=== PATIENT | male | born 1930 | race Caucasian/White ===

== ENCOUNTER 2018-06-21 15:48 | Inpatient (IN) | payer MEDICARE ==
[~2018-06-21] VITALS: Ht 172.7 cm; Wt 54.0 kg
[~2018-06-21 15:48] MED LIST: ACET-1600 PO; ALBU8.5H8 INH; AMLO2.5T5 PO; ASPI-650 PO; CARV3.1212 PO; CEFD300C37 PO; CYAN100T2 PO; DIVA125T2 PO; DOCU-131 PO; ERGO500017 PO; FINA5TAB4 PO; GLIP10TA13 PO; GLIP5TAB10 PO; LISI-167 PO; METF500T PO; METO25TA35 PO; METR500T PO; MIRT15TA94 PO; Magnesium Chloride PO; POLY17PO5 PO; TAMS-11 PO
--- NOTE | 2018-06-21 15:48 | NUR ---
BIB EMS from [facility] in [place], per staff there, pt has had diarrhea and decreased appetite x 2 days. Pt is AAO to self and place, does not know the year and does not know why he was transported to the ED. Pt denies any complaint for this RN. Afib noted on the monitor rate 110s-120s, unk history of afib.
--- NOTE | 2018-06-21 15:50 | NUR ---
Pt placed on all monitors, afib noted at a rate between 100s-120, unknown if pt has history of this. Pt denies any CP, SOB, palpitations, weakness, or any other complaint.
--- NOTE | 2018-06-21 16:15 | NUR ---
Dr. Tabares at bedside to evaluate pt.
--- NOTE | 2018-06-21 16:29 | NUR ---
Student at bedside for EKG.
[2018-06-21 16:44] LABS: BASOPHILS # (AUTO) 0.12 x10^3/uL (0-0.1); BASOPHILS % (AUTO) 1 % (0-1); EOSINOPHILS # (AUTO) 0.04 x10^3/uL (0-0.4); EOSINOPHILS % (AUTO) 0 % (1-7); LYMPHOCYTES # (AUTO) 0.45 x10^3/uL (1-3.4); LYMPHOCYTES % (AUTO) 4 % (22-44); MD NO; MEAN CORPUSCULAR HEMOGLOBIN 28.7 pg (27.5-34.5); MEAN CORPUSCULAR HGB CONC 31.5 g/dL (33.2-36.2); MEAN CORPUSCULAR VOLUME 91.1 fL (81-97); MEAN PLATELET VOLUME 7.5 fL (7.4-10.4); MONOCYTES # (AUTO) 0.89 x10^3/uL (0.2-0.8); MONOCYTES % (AUTO) 8 % (2-9); NEUTROPHILS # (AUTO) 9.68 x10^3/uL (1.8-6.8); NEUTROPHILS % (AUTO) 87 % (42-75); PLATELET COUNT 284 x10^3/uL (130-400); RED BLOOD COUNT 3.65 x10^6/uL (4.38-5.82); RED CELL DISTRIBUTION WIDTH 14.9 % (9.4-14.8)
[2018-06-21 16:53] LABS: ALANINE AMINOTRANSFERASE 25 U/L (12-78); ALBUMIN 2.4 g/dL (3.4-5.0); ANION GAP 6 mmol/L (5-15); CALCIUM 7.7 mg/dL (8.5-10.1); CHLORIDE 111 mmol/L (98-107); CREATININE 0.89 mg/dL (0.7-1.3)
[2018-06-21 16:58] LABS: ALKALINE PHOSPHATASE 90 U/L (45-117); BILIRUBIN,TOTAL 0.4 mg/dL (0.2-1.0); TOTAL PROTEIN 5.9 g/dL (6.4-8.2); TROPONIN I 0.022 ng/mL (0.000-0.045)
--- NOTE | 2018-06-21 17:30 | NUR ---
Pt very restless and agitated in bed, unable to communicate needs, just stating that he wants "to go to bed." Pt asked if he needs to use the bathroom, pt states that he does. Pt assisted to bedside commode. Pt very unsteady on feet, redness noted to sacrum. Pt wearing 2 pairs of disposable briefs from home living facility. Briefs removed and disposed of as they were soiled.
--- NOTE | 2018-06-21 17:44 | NUR ---
EDT at bedside to ensure pt safety on bedside commode and for return to [facility].
--- NOTE | 2018-06-21 17:50 | NUR ---
Stool sample walked to lab.
[2018-06-21] MEDS ORDERED: FUROSEMIDE 20 MG/2 ML ONE (18:11)
--- NOTE | 2018-06-21 18:23 | NUR ---
Pt medicated per MAR.
[2018-06-21] MEDS ORDERED: FUROSEMIDE 40 MG/4 ML IV ONE (18:30)
[2018-06-21 19:41] LABS: CLOSTRIDIUM DIFFICILE TOXIN POSITIVE (Negative)
[2018-06-21 19:46] LABS: CLOSTRIDIUM DIFFICILE ANTIGEN POSITIVE
[2018-06-21] MEDS ORDERED: VANCOMYCIN 50 MG/ML ORAL SUSP PO SCH (20:00)
--- NOTE | 2018-06-21 20:01 | NUR ---
Pt sleeping, on gurney, urinal at bedside. Pt remains on all monitors, afib with occasional PVCs noted.
[2018-06-21] MEDS ORDERED: NS + 20MEQ KCL 1,000 ML IV SCH (20:23)
--- NOTE | 2018-06-21 20:23 | NUR ---
Attempted to call floor RN for report.
[2018-06-21] MEDS ORDERED: IBUPROFEN 600 MG TABLET PO PRN (20:30)
[2018-06-21] MEDS ORDERED: hydrALAzine 20 MG/ML, 1ML IVPush PRN (20:30)
[2018-06-21] MEDS ORDERED: ENALAPRILAT 1.25 MG/ML, 2ML IVPush PRN (20:30)
[2018-06-21] MEDS ORDERED: ACETAMINOPHEN 325 MG TABLET PO PRN (20:30)
--- NOTE | 2018-06-21 20:44 | NUR ---
Telephone SBAR report given to RNLuci. Pt made aware of new room assignment.
[2018-06-21] MEDS: VANCOMYCIN 50 MG/ML ORAL SUSP PO SCH (21:00)
[2018-06-21] MEDS ORDERED: DEXTROSE 50%, 50ML SYRINGE IVPush PRN (21:00)
[2018-06-21] MEDS ORDERED: GLUCAGON 1 MG IM PRN (21:00)
[2018-06-21] MEDS: INSULIN LISPRO 100 UNITS/ML, PEN SQ-INSULIN SCH (21:00)
[2018-06-21] MEDS ORDERED: DEXTROSE 4 GM TAB.CHEW PO PRN (21:00)
[2018-06-21 21:30] VITALS: BP 108/56
[2018-06-21 21:50] LABS: HEMOGLOBIN A1C 8.4 % (4.2-6.3)
[2018-06-21] MEDS: HEPARIN 5,000 UNITS/ML, 1ML SQ SCH (22:32)
[2018-06-21] MEDS: SODIUM CHLORIDE FLUSH 10ML SYR IVF SCH (22:32)
[2018-06-21] MEDS: MIRTAZAPINE 15 MG TAB.RAPDIS PO SCH (22:33)
[2018-06-21] MEDS: DIVALPROEX 125 MG TABLET.DR PO SCH (22:33)
[2018-06-22] MEDS: VANCOMYCIN 50 MG/ML ORAL SUSP PO SCH ×4 (03:28→23:23)
[2018-06-22 03:32] VITALS: BP 128/76
[2018-06-22] MEDS: ASPIRIN 325 MG TABLET EC PO SCH (05:19)
[2018-06-22] MEDS: METOPROLOL TARTRATE 25 MG TABLET PO SCH ×2 (05:20→17:19)
[2018-06-22] MEDS: HEPARIN 5,000 UNITS/ML, 1ML SQ SCH ×3 (05:20→23:22)
[2018-06-22 05:25] LABS: BASOPHILS # (AUTO) 0.07 x10^3/uL (0-0.1); BASOPHILS % (AUTO) 1 % (0-1); EOSINOPHILS # (AUTO) 0.09 x10^3/uL (0-0.4); EOSINOPHILS % (AUTO) 1 % (1-7); LYMPHOCYTES # (AUTO) 0.67 x10^3/uL (1-3.4); LYMPHOCYTES % (AUTO) 8 % (22-44); MD NO; MEAN CORPUSCULAR HEMOGLOBIN 31.4 pg (27.5-34.5); MEAN CORPUSCULAR HGB CONC 34.2 g/dL (33.2-36.2); MEAN CORPUSCULAR VOLUME 91.7 fL (81-97); MEAN PLATELET VOLUME 7.4 fL (7.4-10.4); MONOCYTES # (AUTO) 0.45 x10^3/uL (0.2-0.8); MONOCYTES % (AUTO) 6 % (2-9); NEUTROPHILS # (AUTO) 6.72 x10^3/uL (1.8-6.8); NEUTROPHILS % (AUTO) 84 % (42-75); PLATELET COUNT 239 x10^3/uL (130-400); RED BLOOD COUNT 3.19 x10^6/uL (4.38-5.82); RED CELL DISTRIBUTION WIDTH 14.7 % (9.4-14.8)
[2018-06-22 05:30] LABS: CHLORIDE 112 mmol/L (98-107)
[2018-06-22 05:46] LABS: ALANINE AMINOTRANSFERASE 18 U/L (12-78); ALBUMIN 2.2 g/dL (3.4-5.0); ALKALINE PHOSPHATASE 76 U/L (45-117); ANION GAP 8 mmol/L (5-15); BILIRUBIN,TOTAL 0.6 mg/dL (0.2-1.0); CALCIUM 7.2 mg/dL (8.5-10.1); CREATININE 0.91 mg/dL (0.7-1.3); TOTAL PROTEIN 5.5 g/dL (6.4-8.2)
[2018-06-22] MEDS ORDERED: MAGNESIUM SULFATE 1 GM in SODIUM CHLORIDE 0.9% 50 ML IV ONE (06:30)
[2018-06-22] MEDS: INSULIN LISPRO 100 UNITS/ML, PEN SQ-INSULIN SCH ×3 (07:11→17:19)
[2018-06-22 08:13] VITALS: BP 129/79
[2018-06-22] MEDS ORDERED: MAGNESIUM SULFATE PMX 2GM/50ML 50 ML IV ONE (09:30)
[2018-06-22] MEDS: DIVALPROEX 125 MG TABLET.DR PO SCH ×2 (09:34→23:22)
[2018-06-22] MEDS: SODIUM CHLORIDE FLUSH 10ML SYR IVF SCH ×2 (09:35→21:00)
[2018-06-22] MEDS: TAMSULOSIN 0.4 MG CAP.ER.24H PO SCH (09:35)
[2018-06-22] MEDS: POTASSIUM CHLORIDE 30 MEQ in LACTATED RINGERS 1,000 ML IV SCH (09:36)
[2018-06-22 11:07] VITALS: BP 107/62
[2018-06-22 14:42] VITALS: BP 128/66
[2018-06-22 17:18] VITALS: BP 122/75
[2018-06-22 18:57] VITALS: BP 99/60
[2018-06-22] MEDS: MIRTAZAPINE 15 MG TAB.RAPDIS PO SCH (23:22)
[2018-06-23] MEDS: INSULIN LISPRO 100 UNITS/ML, PEN SQ-INSULIN SCH ×5 (00:36→21:12)
[2018-06-23] MEDS: POTASSIUM CHLORIDE 30 MEQ in LACTATED RINGERS 1,000 ML IV SCH ×2 (01:35→15:14)
[2018-06-23 02:16] VITALS: BP 108/66
[2018-06-23] MEDS: VANCOMYCIN 50 MG/ML ORAL SUSP PO SCH ×4 (05:30→21:13)
[2018-06-23] MEDS: ASPIRIN 325 MG TABLET EC PO SCH (05:31)
[2018-06-23] MEDS: HEPARIN 5,000 UNITS/ML, 1ML SQ SCH ×3 (05:31→21:13)
[2018-06-23] MEDS: METOPROLOL TARTRATE 25 MG TABLET PO SCH ×2 (05:34→17:41)
[2018-06-23 05:45] LABS: CHLORIDE 114 mmol/L (98-107)
[2018-06-23 05:51] LABS: ANION GAP 6 mmol/L (5-15); CALCIUM 7.4 mg/dL (8.5-10.1); CREATININE 0.77 mg/dL (0.7-1.3)
[2018-06-23 07:31] VITALS: BP 122/67
[2018-06-23] MEDS: TAMSULOSIN 0.4 MG CAP.ER.24H PO SCH (08:55)
[2018-06-23] MEDS: DIVALPROEX 125 MG TABLET.DR PO SCH ×2 (08:56→21:13)
[2018-06-23] MEDS: SODIUM CHLORIDE FLUSH 10ML SYR IVF SCH ×2 (08:56→21:12)
[2018-06-23] MEDS ORDERED: ZINC OXIDE 20% TP PRN (10:00)
[2018-06-23 13:09] VITALS: BP 116/68
[2018-06-23 17:35] VITALS: BP 116/72
[2018-06-23 20:00] VITALS: BP 111/63
[2018-06-23] MEDS: MIRTAZAPINE 15 MG TAB.RAPDIS PO SCH (21:12)
[2018-06-24 00:09] VITALS: BP 109/68
[2018-06-24] MEDS: POTASSIUM CHLORIDE 30 MEQ in LACTATED RINGERS 1,000 ML IV SCH (05:16)
[2018-06-24] MEDS: HEPARIN 5,000 UNITS/ML, 1ML SQ SCH ×3 (05:16→21:58)
[2018-06-24] MEDS: ASPIRIN 325 MG TABLET EC PO SCH (05:16)
[2018-06-24] MEDS: METOPROLOL TARTRATE 25 MG TABLET PO SCH ×2 (05:17→18:11)
[2018-06-24] MEDS: VANCOMYCIN 50 MG/ML ORAL SUSP PO SCH ×4 (05:17→23:41)
[2018-06-24 05:19] VITALS: BP 114/70
[2018-06-24 05:59] LABS: CHLORIDE 112 mmol/L (98-107)
[2018-06-24 06:04] LABS: ANION GAP 4 mmol/L (5-15); CALCIUM 7.6 mg/dL (8.5-10.1); CREATININE 0.83 mg/dL (0.7-1.3)
[2018-06-24] MEDS: INSULIN LISPRO 100 UNITS/ML, PEN SQ-INSULIN SCH ×4 (07:00→21:53)
[2018-06-24 08:06] VITALS: BP 109/66
[2018-06-24] MEDS: DIVALPROEX 125 MG TABLET.DR PO SCH ×2 (09:36→21:52)
[2018-06-24] MEDS: TAMSULOSIN 0.4 MG CAP.ER.24H PO SCH (09:37)
[2018-06-24] MEDS: SODIUM CHLORIDE FLUSH 10ML SYR IVF SCH ×2 (09:37→21:53)
[2018-06-24 13:46] VITALS: BP 118/67
[2018-06-24 19:23] VITALS: BP 107/67
[2018-06-24] MEDS: MIRTAZAPINE 15 MG TAB.RAPDIS PO SCH (21:52)
[2018-06-25 02:11] VITALS: BP 106/58
[2018-06-25 05:38] VITALS: BP 114/68
[2018-06-25] MEDS: VANCOMYCIN 50 MG/ML ORAL SUSP PO SCH ×4 (05:41→22:42)
[2018-06-25] MEDS: ASPIRIN 325 MG TABLET EC PO SCH (05:41)
[2018-06-25] MEDS: METOPROLOL TARTRATE 25 MG TABLET PO SCH ×2 (05:42→18:02)
[2018-06-25] MEDS: HEPARIN 5,000 UNITS/ML, 1ML SQ SCH ×3 (05:42→22:41)
[2018-06-25] MEDS: INSULIN LISPRO 100 UNITS/ML, PEN SQ-INSULIN SCH ×4 (07:00→22:41)
[2018-06-25 07:50] VITALS: BP 125/68
[2018-06-25] MEDS: DIVALPROEX 125 MG TABLET.DR PO SCH ×2 (08:59→20:44)
[2018-06-25] MEDS: TAMSULOSIN 0.4 MG CAP.ER.24H PO SCH (08:59)
[2018-06-25] MEDS: SODIUM CHLORIDE FLUSH 10ML SYR IVF SCH ×2 (09:00→20:43)
[2018-06-25] MEDS ORDERED: VANC1VIA3 PO (11:47)
[2018-06-25 12:36] VITALS: BP 100/67
[2018-06-25 18:00] VITALS: BP 124/71
[2018-06-25 19:42] VITALS: BP 103/59
[2018-06-25] MEDS: MIRTAZAPINE 15 MG TAB.RAPDIS PO SCH (20:44)
[2018-06-26 04:00] VITALS: BP 133/82
[2018-06-26 06:12] VITALS: BP 108/66
[2018-06-26] MEDS: METOPROLOL TARTRATE 25 MG TABLET PO SCH (06:14)
[2018-06-26] MEDS: ASPIRIN 325 MG TABLET EC PO SCH (06:14)
[2018-06-26] MEDS: VANCOMYCIN 50 MG/ML ORAL SUSP PO SCH ×2 (06:14→11:20)
[2018-06-26] MEDS: HEPARIN 5,000 UNITS/ML, 1ML SQ SCH (06:15)
[2018-06-26] MEDS: INSULIN LISPRO 100 UNITS/ML, PEN SQ-INSULIN SCH ×2 (07:00→11:32)
[2018-06-26] MEDS: SODIUM CHLORIDE FLUSH 10ML SYR IVF SCH (09:00)
[2018-06-26] MEDS: TAMSULOSIN 0.4 MG CAP.ER.24H PO SCH (09:31)
[2018-06-26] MEDS: DIVALPROEX 125 MG TABLET.DR PO SCH (09:32)
== END 2018-06-26 19:22 | disposition home health service (06) | DRG 371 ==
LOC: ED 17:29 → EDIP 20:00 → 5SO 20:56
PROVIDERS: ADMIT Family Medicine; ATTEND Family Medicine
DX: A04.72 Enterocolitis due to Clostridium difficile, not specified as recurrent (principal); E43 Unspecified severe protein-calorie malnutrition; E87.0 Hyperosmolality and hypernatremia; Z68.1 Body mass index [BMI] 19.9 or less, adult; D68.69 Other thrombophilia; I50.32 Chronic diastolic (congestive) heart failure; F03.90 Unspecified dementia, unspecified severity, without behavioral disturbance, psychotic disturbance, mood disturbance, and anxiety; I48.91 Unspecified atrial fibrillation; M62.50 Muscle wasting and atrophy, not elsewhere classified, unspecified site; R62.7 Adult failure to thrive; D64.9 Anemia, unspecified; E11.9 Type 2 diabetes mellitus without complications; E87.6 Hypokalemia; Z79.899 Other long term (current) drug therapy
CPT/HCPCS: 36415; 71045; 80048; 80053; 82962; 83036; 83735; 83880; 84100; 84443; 84484; 85025; 87324; 89055; 93005; 93306; 96374; 99285; G0378; J1644; J1940; J3370; J3475; J3480; J1815; J7120

== ENCOUNTER 2018-07-08 14:24 | Observation (INO) | payer MEDICARE ==
[~2018-07-08] VITALS: Ht 177.8 cm; Wt 53.1 kg
[~2018-07-08 14:24] MED LIST changes: +VANC1VIA3 PO
--- NOTE | 2018-07-08 14:53 | NUR ---
CALLED VIKI, PICKLING OPERATOR, FOR INVESTIGATION INTO EPS/HOME CARE/RELIEF PHARMACIST CONCERNS.
[2018-07-08 15:24] LABS: BASOPHILS # (AUTO) 0.01 x10^3/uL (0-0.1); BASOPHILS % (AUTO) 0 % (0-1); EOSINOPHILS # (AUTO) 0.04 x10^3/uL (0-0.4); EOSINOPHILS % (AUTO) 1 % (1-7); LYMPHOCYTES # (AUTO) 0.52 x10^3/uL (1-3.4); LYMPHOCYTES % (AUTO) 11 % (22-44); MD NO; MEAN CORPUSCULAR HGB CONC 33.2 g/dL (33.2-36.2); MEAN CORPUSCULAR VOLUME 96.5 fL (81-97); MONOCYTES # (AUTO) 0.22 x10^3/uL (0.2-0.8); MONOCYTES % (AUTO) 5 % (2-9); NEUTROPHILS # (AUTO) 4.14 x10^3/uL (1.8-6.8); NEUTROPHILS % (AUTO) 84 % (42-75); PLATELET COUNT 302 x10^3/uL (130-400); RED BLOOD COUNT 3.08 x10^6/uL (4.38-5.82)
[2018-07-08 15:34] LABS: INTERNATIONAL NORMALIZED RATIO 1.06 (0.93-1.1); PROTHROMBIN TIME 11.1 Seconds (9.6-11.5)
[2018-07-08 15:36] LABS: ALANINE AMINOTRANSFERASE 22 U/L (12-78); ALBUMIN 2.8 g/dL (3.4-5.0); ANION GAP 7 mmol/L (5-15); CHLORIDE 109 mmol/L (98-107); CREATININE 0.99 mg/dL (0.7-1.3)
[2018-07-08 15:40] LABS: ALKALINE PHOSPHATASE 77 U/L (45-117); BILIRUBIN,TOTAL 0.2 mg/dL (0.2-1.0); CREATINE KINASE, TOTAL 23 U/L (39-308); TOTAL PROTEIN 6.2 g/dL (6.4-8.2); TROPONIN I 0.028 ng/mL (0.000-0.045)
[2018-07-08 16:47] LABS: MICROSCOPIC AUTO
[2018-07-08 16:49] LABS: CULTURE INDICATED? YES
[2018-07-08 17:44] VITALS: BP 120/69
[2018-07-08 17:50] VITALS: BP 120/69
[2018-07-08] MEDS ORDERED: ACETAMINOPHEN 500 MG TABLET PO PRN (18:00)
[2018-07-08] MEDS ORDERED: DOCUSATE 100 MG CAPSULE PO PRN (18:00)
[2018-07-08 19:10] VITALS: BP 101/51
[2018-07-08] MEDS: METOPROLOL TARTRATE 25 MG TABLET PO SCH (20:00)
[2018-07-08] MEDS: LACTATED RINGERS 1,000 ML IV SCH (20:07)
[2018-07-08] MEDS: DIVALPROEX 125 MG TABLET.DR PO SCH (21:35)
[2018-07-08] MEDS: MIRTAZAPINE 15 MG TAB.RAPDIS PO SCH (21:36)
[2018-07-08] MEDS: HEPARIN 5,000 UNITS/ML, 1ML SQ SCH (21:36)
[2018-07-08] MEDS: ALBUTEROL/IPRATROPIUM 2.5MG/0.5MG, 3 ML NPPB SCH (23:00)
[2018-07-09 00:48] VITALS: BP 104/63
[2018-07-09] MEDS: ALBUTEROL/IPRATROPIUM 2.5MG/0.5MG, 3 ML NPPB SCH ×7 (03:00→22:53)
[2018-07-09 04:49] LABS: BASOPHILS # (AUTO) 0.03 x10^3/uL (0-0.1); BASOPHILS % (AUTO) 1 % (0-1); EOSINOPHILS # (AUTO) 0.05 x10^3/uL (0-0.4); EOSINOPHILS % (AUTO) 1 % (1-7); LYMPHOCYTES # (AUTO) 0.55 x10^3/uL (1-3.4); LYMPHOCYTES % (AUTO) 12 % (22-44); MD NO; MEAN CORPUSCULAR HEMOGLOBIN 31.9 pg (27.5-34.5); MEAN CORPUSCULAR HGB CONC 33.2 g/dL (33.2-36.2); MEAN CORPUSCULAR VOLUME 96.1 fL (81-97); MEAN PLATELET VOLUME 7.2 fL (7.4-10.4); MONOCYTES # (AUTO) 0.33 x10^3/uL (0.2-0.8); MONOCYTES % (AUTO) 7 % (2-9); NEUTROPHILS # (AUTO) 3.78 x10^3/uL (1.8-6.8); NEUTROPHILS % (AUTO) 80 % (42-75); PLATELET COUNT 265 x10^3/uL (130-400); RED BLOOD COUNT 2.78 x10^6/uL (4.38-5.82)
[2018-07-09 05:03] LABS: ALBUMIN 2.5 g/dL (3.4-5.0); CALCIUM 7.6 mg/dL (8.5-10.1); CHLORIDE 109 mmol/L (98-107)
[2018-07-09 05:07] LABS: ALANINE AMINOTRANSFERASE 15 U/L (12-78); ALKALINE PHOSPHATASE 69 U/L (45-117); ANION GAP 9 mmol/L (5-15); BILIRUBIN,TOTAL 0.3 mg/dL (0.2-1.0); CREATININE 0.86 mg/dL (0.7-1.3); TOTAL PROTEIN 5.6 g/dL (6.4-8.2)
[2018-07-09] MEDS: ASPIRIN 325 MG TABLET EC PO SCH (05:34)
[2018-07-09] MEDS: HEPARIN 5,000 UNITS/ML, 1ML SQ SCH ×3 (05:35→21:44)
[2018-07-09] MEDS: METOPROLOL TARTRATE 25 MG TABLET PO SCH ×2 (05:38→17:52)
[2018-07-09 07:42] VITALS: BP 95/61
[2018-07-09] MEDS: DIVALPROEX 125 MG TABLET.DR PO SCH ×2 (11:21→21:43)
[2018-07-09] MEDS: TAMSULOSIN 0.4 MG CAP.ER.24H PO SCH (11:21)
[2018-07-09] MEDS: LACTATED RINGERS 1,000 ML IV SCH (12:00)
[2018-07-09 12:53] VITALS: BP 108/64
[2018-07-09] MEDS ORDERED: ALBUTEROL/IPRATROPIUM 2.5MG/0.5MG, 3 ML NPPB PRN (16:00)
[2018-07-09 18:38] VITALS: BP 101/60
[2018-07-09] MEDS: MIRTAZAPINE 15 MG TAB.RAPDIS PO SCH (21:43)
[2018-07-10 00:45] VITALS: BP 114/64
[2018-07-10] MEDS: LACTATED RINGERS 1,000 ML IV SCH (01:20)
[2018-07-10] MEDS: ALBUTEROL/IPRATROPIUM 2.5MG/0.5MG, 3 ML NPPB SCH ×2 (02:34→06:19)
[2018-07-10] MEDS: ASPIRIN 325 MG TABLET EC PO SCH (05:28)
[2018-07-10] MEDS: METOPROLOL TARTRATE 25 MG TABLET PO SCH ×2 (05:28→17:46)
[2018-07-10] MEDS: HEPARIN 5,000 UNITS/ML, 1ML SQ SCH ×3 (05:28→20:26)
[2018-07-10 06:47] VITALS: BP 95/50
[2018-07-10] MEDS: DIVALPROEX 125 MG TABLET.DR PO SCH ×2 (08:09→20:26)
[2018-07-10] MEDS: MULTIVITAMIN 1 TABLET PO SCH (08:09)
[2018-07-10] MEDS: TAMSULOSIN 0.4 MG CAP.ER.24H PO SCH (08:09)
[2018-07-10 12:04] VITALS: BP 91/55
[2018-07-10 18:28] VITALS: BP 100/58
[2018-07-10] MEDS: MIRTAZAPINE 15 MG TAB.RAPDIS PO SCH (20:26)
[2018-07-11 01:02] VITALS: BP 98/65
[2018-07-11] MEDS: HEPARIN 5,000 UNITS/ML, 1ML SQ SCH ×2 (04:14→12:14)
[2018-07-11 06:07] VITALS: BP 111/60
[2018-07-11] MEDS: ASPIRIN 325 MG TABLET EC PO SCH (06:12)
[2018-07-11] MEDS: METOPROLOL TARTRATE 25 MG TABLET PO SCH (06:13)
[2018-07-11] MEDS: DIVALPROEX 125 MG TABLET.DR PO SCH (09:21)
[2018-07-11] MEDS: MULTIVITAMIN 1 TABLET PO SCH (09:21)
[2018-07-11] MEDS: TAMSULOSIN 0.4 MG CAP.ER.24H PO SCH (09:21)
[2018-07-11 13:03] VITALS: BP 93/54
== END 2018-07-11 15:00 | disposition home or self-care (01) ==
LOC: ED 15:32 → INTOOBSV 16:04 → EDIP 16:04 → 3NW 17:37
PROVIDERS: ADMIT Internal Medicine; ATTEND Internal Medicine
DX: R62.7 Adult failure to thrive (principal); J44.9 Chronic obstructive pulmonary disease, unspecified; E11.9 Type 2 diabetes mellitus without complications; E43 Unspecified severe protein-calorie malnutrition; F03.90 Unspecified dementia, unspecified severity, without behavioral disturbance, psychotic disturbance, mood disturbance, and anxiety; I48.2 Chronic atrial fibrillation; R64 Cachexia; D64.9 Anemia, unspecified; I50.9 Heart failure, unspecified; Z79.82 Long term (current) use of aspirin; Z79.84 Long term (current) use of oral hypoglycemic drugs; Z79.899 Other long term (current) drug therapy
CPT/HCPCS: 36415; 71045; 80053; 81001; 82550; 82607; 82962; 83735; 84443; 84484; 85025; 85610; 85730; 87086; 87106; 93005; 94640; 96372; 99284; G0378; J1644; J7120; J7620